=== PATIENT | female | born 1975 | race Asian ===

== ENCOUNTER 2019-09-08 09:44 | Emergency (ER) | payer BC ==
[~2019-09-08] VITALS: Ht 157.5 cm; Wt 51.7 kg
[2019-09-08 10:00] VITALS: BP_SYST 131
--- NOTE | 2019-09-08 10:22 | NUR ---
Patient to ER bed 4 to gown for evaluation. Side rails up. Report given to Lawson GARCIA.
[2019-09-08 10:51] LABS: BASOPHILS % (AUTO) 0.3 % (0.0-2.0); EOSINOPHILS % (AUTO) 0.1 % (0.0-4.0); HEMATOCRIT 31.5 % (36-48); LYMPHOCYTES # (AUTO) 1.3 K/uL (1.0-5.5); LYMPHOCYTES % (AUTO) 10.1 % (20.5-51.5); MEAN CORPUSCULAR HEMOGLOBIN 22 pg (27-31); MEAN CORPUSCULAR HGB CONC 32 % (32-36); MEAN CORPUSCULAR VOLUME 69 fL (79.0-98.0); MONOCYTES # (AUTO) 0.3 K/uL (0.0-1.0); MONOCYTES % (AUTO) 2.6 % (1.7-9.3); NEUTROPHILS # (AUTO) 11.3 K/uL (1.8-7.7); NEUTROPHILS % (AUTO) 86.9 % (40.0-70.0); PLATELET COUNT (AUTO) 333 K/uL (130-430); RED BLOOD CELL COUNT(AUTO) 4.54 MIL/uL (4.2-6.2)
[2019-09-08 12:35] VITALS: BP_SYST 131
--- NOTE | 2019-09-08 12:35 | NUR ---
Patient given written and verbal discharge instructions and verbalizes understanding. ER MD discussed with patient the results and treatment provided. Patient in stable condition. ID arm band removed. Rx of Tramadol and Misoprostol given. Patient educated on pain management and to follow up with PMD. Pain Scale 1/10 tolerable for patient . Opportunity for questions provided and answered. Medication side effect fact sheet provided.
== END 2019-09-08 12:35 | disposition home or self-care (01) ==
LOC: SED 09:44
DX: O03.9 Complete or unspecified spontaneous abortion without complication (principal)
CPT/HCPCS: 36415; 76801; 76817; 84702-TC; 85025; 99284

== ENCOUNTER 2022-06-10 05:25 | Emergency (ER) | payer BC ==
[~2022-06-10] VITALS: Ht 157.5 cm; Wt 53.5 kg
[2022-06-10 05:42] VITALS: BP_SYST 132
--- NOTE | 2022-06-10 05:51 | NUR ---
ZHANNA RN [facility] TRIAGE NURSE.REPORT FROM RADHA QURESHI. PT C/O "HARD TO BREATHE"X2 HOURS, CHEST TIGHTNESS. PRODUCTIVE COUGH WITH THICK WHITE SPUTUM. "COULD'T LAY DOWN" HX OF ASTHMA. NO RX AT HOME, AT BEDSIDE. SAO2-96% ON R/A.
--- NOTE | 2022-06-10 05:54 | NUR ---
Report given to Sol GARCIA
[2022-06-10] MEDS ORDERED: ALBUTEROL SULFATE 0.083% 2.5 MG/3 ML VIAL.NEB INH ONE (06:00)
--- NOTE | 2022-06-10 06:48 | NUR ---
DR. THURSTON AT BEDSIDE EXAM/EVAL
[2022-06-10] MEDS ORDERED: PRED20TA PO (06:57)
[2022-06-10] MEDS ORDERED: ALBU8.5H8 INH (06:57)
[2022-06-10 07:09] VITALS: BP_SYST 120
--- NOTE | 2022-06-10 07:10 | NUR ---
pt stable for d/c to home with . pt feels better after breathing hhn tx. 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 to lobby amb with all paperwork in hand
== END 2022-06-10 07:10 | disposition home or self-care (01) ==
LOC: SED 05:25
DX: J45.909 Unspecified asthma, uncomplicated (principal); R06.02 Shortness of breath; Z79.899 Other long term (current) drug therapy
CPT/HCPCS: 94640; 99283; J7613